=== PATIENT | female | born 1980 | race Two or more races ===

== ENCOUNTER 2018-11-11 11:13 | Emergency (ER) | payer OTHER ==
[2018-11-11 12:28] LABS: URINE BLOOD (Dip) POC 3+ (NEGATIVE); URINE GLUCOSE (Dip) POC Negative (NEGATIVE); URINE KETONES (Dip) POC Negative (NEGATIVE); URINE LEUKOCYTE EST (Dip) POC 2+ (NEGATIVE); URINE NITRITE (Dip) POC Negative (NEGATIVE); URINE TOTAL PROTEIN POC Negative (NEGATIVE)
== END 2018-11-11 13:33 | disposition home or self-care (01) ==
LOC: FTE 11:13
DX: N39.0 Urinary tract infection, site not specified (principal)
CPT/HCPCS: 81003; 81025; 99283